=== PATIENT | female | born 1950 | race African-American/Black ===

== ENCOUNTER 2022-01-16 19:19 | Emergency (ER) | payer MEDICARE, SELFPAY ==
[2022-01-16 19:30] VITALS: BP 186/77; PULSE 67; RESP 16; TEMP 36.1; O2SAT 99
[2022-01-16 20:44] LABS: Basophils Absolute Auto 0.1 K/mm3 (0.0-0.1); Basophils Percent Auto 1.2 % (0.2-1.2); Eosinophils Absolute Auto 0.2 K/mm3 (0-0.3); Hematocrit 38.8 % (37.0-47.0); Hemoglobin 12.1 g/dL (12.0-15.0); Immature Granulocyte Absolute 0.01 K/mm3 (0.00-0.031); Immature Granulocyte Percent A 0.2 % (0-0.5); Lymphocytes Absolute Auto 1.06 K/mm3 (0.9-3.2); Lymphocytes Percent Auto 21.2 % (18.3-44.2); Mean Corpuscular HGB Conc 31.2 g/dl (32-36); Mean Corpuscular Hemoglobin 27.6 pg (26-34); Mean Corpuscular Volume 88.6 fl (80-100); Mean Platelet Volume 10.7 fl (7.4-10.4); Monocytes Absolute Auto 0.5 K/mm3 (0.1-0.6); Monocytes Percent Auto 9.8 % (2.6-8.5); Neutrophils Absolute Auto 3.2 K/mm3 (1.3-6.7); Neutrophils Percent Auto 64.6 % (45.5-73.1); Platelet Count Result 231 k/mm3 (150-375); Red Blood Count 4.38 M/mm3 (4.2-5.4); Red Cell Distribution Width 14.8 % (11.5-14.5)
[2022-01-16 21:00] LABS: Alanine Aminotransferase 16 U/L (6-35); Albumin Level 3.7 g/dL (3.5-5.1); Alkaline Phosphatase 70 U/L (38-126); Anion Gap 8 mmol/L (8-16); Aspartate Amino Transferase 22 U/L (14-36); Bilirubin,Total 0.6 mg/dL (0.2-1.3); Blood Urea Nitrogen 18 mg/dL (7-17); CRP 0.9 mg/dL (<1.0); Calcium 8.7 mg/dL (8.4-10.2); Carbon Dioxide 26 mmol/L (22-30); Chloride 105 mmol/L (98-107); Estimated CRCL calculation 66 ml/min; Estimated Glomerular Filt Rate > 60; Glucose 106 mg/dL (65-110); Potassium 3.7 mmol/L (3.4-5.0); Sodium 139 mmol/L (137-145)
--- NOTE | 2022-01-16 21:22 | ED.GENADULT ---
HPI - General Adult General Chief complaint: Skin/Abscess/Foreign Body Stated complaint: L LEG INFECTION /SP SURG 12/06 Time Seen by Provider: 01/16/22 20:45 Source: patient Mode of arrival: wheelchair Limitations: no limitations History of Present Illness HPI narrative: 71-year-old with a history of peripheral vascular disease s/p stent in the femoral area done several months ago at [facility] presents to the ER with complaints of ulcer to her left leg which has been ongoing for last several months. Patient states that she has seen her vascular surgeon this morning and was advised to follow-up with the wound care.. Patient presently has not seen any wounds healthcare prof. She complains of discharge from the wound which is ongoing as well. She denies any fever or chills. She states that she puts Vaseline dressing on a daily basis. She is on Plavix, Eliquis Onset (ago): month(s) Location: lower extremity (Left) Radiation: non-radiation Severity: mild Relieving factors: none Exacerbating factors: none Related Data Home Medications Medication Instructions Recorded Confirmed apixaban 5 mg tablet (Eliquis) mg 01/16/22 carvedilol 6.25 mg tablet mg 01/16/22 clopidogrel 75 mg tablet mg 01/16/22 losartan 50 mg tablet mg 01/16/22 metoprolol succinate 25 mg mg PO 01/16/22 tablet,extended release 24 hr Allergies Allergy/AdvReac Type Severity Reaction Status Date / Time No Known Allergies Allergy Mild Verified 01/16/22 21:03 Review of Systems Review of Systems: All systems reviewed & are unremarkable except as noted in HPI and below Constitutional: Constitutional: Reports no additional constitutional complaints Eyes: Eyes: Reports no additional eye complaints ENT: Reports system reviewed and no additional complaints, except as documented Cardiovascular: Cardiovascular: Reports no additional cardiovascular complaints Respiratory: Respiratory: Reports no additional respiratory complaints Gastrointestinal: Gastrointestinal: Reports no additional gastrointestinal complaints Musculoskeletal: Musculoskeletal: Reports no additional musculoskeletal complaints Integumentary/Breasts: Skin/Breast: Reports as per HPI Neurologic: Reports system reviewed and no additional complaints, except as documented Psychiatric: Psychiatric: Reports no additional psychiatric complaints Exam Narrative: GENERAL: Well-appearing, obese, and in no acute distress. HEAD: Normocephalic, atraumatic. EYES: PERRLA and EOMI. NECK: Supple. CHEST: Clear to auscultation. No respiratory distress. HEART: Regular rate and rhythm. No murmur heard. Normal peripheral pulses. ABDOMEN: Soft, nontender, nondistended, normal active bowel sounds. EXTREMITIES: Normal range of motion. No edema. Examination of the left leg she has a small vascular ulcer on the lateral aspect of the lower leg with mild drainage mild induration present SKIN: Warm, dry, no rash. NEURO: No focal deficits. Alert and oriented x3. PSYCH: Normal mood and affect. Course Course Emergency Course: Discussed lab work with the patient. At this time the wound does not seem to be infected. We will refer her to wound care she feels comfortable going home with a referral. Vital Signs Vital signs: Vital Signs Temperature 36.1 C L 01/16/22 19:30 Pulse Rate 67 01/16/22 19:30 Respiratory Rate 16 01/16/22 19:30 Blood Pressure 186/77 H 01/16/22 19:30 Pulse Oximetry 99 01/16/22 19:30 Oxygen Delivery Room Air 01/16/22 19:30 Temperature 36.1 C L 01/16/22 19:30 Pulse Rate 67 01/16/22 19:30 Respiratory Rate 16 01/16/22 19:30 Blood Pressure 186/77 H 01/16/22 19:30 Pulse Oximetry 99 01/16/22 19:30 Oxygen Delivery Room Air 01/16/22 19:30 Medical Decision Making Vital Signs Vital Signs: Vital Signs Temperature 36.1 C L 01/16/22 19:30 Pulse Rate 67 01/16/22 19:30 Respiratory Rate 16 01/16/22 19:30 Blood Pressure 186/77 H
[2022-01-16 22:12] VITALS: BP 152/76; PULSE 63; RESP 18; O2SAT 99
== END 2022-01-16 22:15 | disposition home or self-care (01) ==
LOC: ANHED 21:59
PROVIDERS: Emergency Provider Family Medicine; PCP Internal Medicine Cardiovascular Disease
DX: I73.9 Peripheral vascular disease, unspecified (principal); L97.229 Non-pressure chronic ulcer of left calf with unspecified severity; Z79.01 Long term (current) use of anticoagulants; Z79.02 Long term (current) use of antithrombotics/antiplatelets
CPT/HCPCS: 36415; 80053; 85025; 86140; 99283